=== PATIENT | female | born 1985 | race Caucasian/White ===

== ENCOUNTER 2018-09-07 23:08 | Emergency (ER) | payer OTHER ==
[2018-09-08] MEDS ORDERED: ONDANSETRON (ODT) 4 MG TAB ODT (01:04)
[2018-09-08] MEDS ORDERED: ACET/BUTAL/CAFF TAB PO (01:30)
[2018-09-08] MEDS ORDERED: DIPHENHYDRAMINE 50 MG CAP PO (01:30)
== END 2018-09-08 01:17 | disposition left against medical advice (07) ==
LOC: FTE 23:08
DX: J06.9 Acute upper respiratory infection, unspecified (principal)
CPT/HCPCS: 99282